=== PATIENT | female | born 2000 | race Caucasian/White ===

== ENCOUNTER 2020-01-01 17:45 | Emergency (ER) | payer MEDICAID, SELFPAY ==
[2020-01-01 19:32] VITALS: BP 118/60; PULSE 62; RESP 14; TEMP 36.8; O2SAT 99; BMI 25.7
--- NOTE | 2020-01-01 20:16 | ED_ITS ---
HPI - Wound/Laceration General Chief Complaint: Wound/Laceration Stated Complaint: NOSE INJUIRY DUE TO FALL Time Seen by Provider: 01/01/20 20:01 Source: patient Mode of arrival: ambulatory Limitations: no limitations History of Present Illness HPI narrative: patient had a trip and fall yesterday hitting her face on her air conditioner. She denies loss of consciousness. She is here with a laceration to the nose. No headache, dizziness, vision changes, nausea or vomiting. Tetanus is up-to-date. Onset (ago): day(s) Location: face Place: home Patient tetanus UTD: Yes Context: accidental Associated symptoms: none Related Data Allergies Allergy/AdvReac Type Severity Reaction Status Date / Time No Known Allergies Allergy Unverified 10/25/19 16:51 [No Known Allergies*] Review of Systems Review of Systems: Yes all other systems are reviewed and are negative Constitutional: Constitutional: Reports no additional constitutional complaints, Denies body ache(s), Denies chills, Denies fever(s), Denies headache(s) and Denies weakness Eyes: Eyes: Reports no additional eye complaints and Denies change in vision ENT: Reports system reviewed and no additional complaints, except as documented, Denies dizziness, Denies headache(s), Denies nasal congestion, Den ies nasal discharge and Denies neck pain Cardiovascular: Cardiovascular: Reports no additional cardiovascular complaints, Denies chest pain, Denies leg edema and Denies dyspnea Respiratory: Respiratory: Reports no additional respiratory complaints, Denies cough and Denies dyspnea Gastrointestinal: Gastrointestinal: Reports no additional gastrointestinal complaints, Denies abdominal pain, Denies diarrhea, Denies nausea and Denies vomiting Genitourinary: Genitourinary: Reports no additional female genitourinary complaints and Denies urinary incontinence Musculoskeletal: Musculoskeletal: Reports no additional musculoskeletal complaints, Denies back pain, Denies arthralgias, Denies joint swelling, Denies neck pain, Denies numbness and Denies tingling Integumentary/Breasts: Skin/Breast: Reports system reviewed and no additional complaints, except as docu and Denies rash Neurologic: Reports system reviewed and no additional complaints, except as documented, Denies Abnormal speech present, Denies dizziness, Denies headache(s), Denies numbness, Denies tingling and Denies weakness PMFSH Past Medical History Attestation statement: The following information was validated with the patient. Source: old records reviewed and nursing notes reviewed Medical History No known health problems Social History Social History Advance Directives: No Advance Directives Information Provided: No Physical Exam Vital Signs: Vital Signs: Last Vital Signs Temp 98.3 F 01/01/20 19:32 Pulse 62 01/01/20 19:32 Resp 14 01/01/20 19:32 BP 118/60 01/01/20 19:32 Pulse Ox 99 01/01/20 19:32 Body Mass Index 25.7 Const: General: cooperative, healthy appearing, comfortable and no acute distress Orientation/consciousness: patient oriented x3 Limitations: no limitations HENMT: Other: To the bridge of the nose there is a approximately 0.5 centimetre laceration with no active bleeding and edges are approximated. There is some mild tenderness over the site with no ecchymosis or swelling. Head: Yes normal to inspection Ears: hearing grossly normal bilaterally General nose exam: Normal external nose present Face and sinus: Yes normal facial exam Mouth: Normal oral and palatal mucosa present Throat: Yes posterior oropharynx normal Eyes: General: appearance normal, both eyes and all related structures Pupils: Equal, round and reactive pupils present Neck: Neck: Yes normal visual inspection Chest: Chest palpation & inspection: normal inspection of the chest Resp: Effort & Inspection: normal respiratory effort Auscultation: clear to auscultation bilaterally Cardio: Rate: regular rate Rhythm: regular rhythm Peripheral pulses: Peripheral pulses 2+ throughout GI: Inspection: Yes normal to inspection Palpation (GI): Soft to palpation and nontender Auscultation: normal bowel sounds Back/Spine/Pelvis: Thoracic/Lumbar Spine: thoracic and lumbar spine normal to inspection Skin: General skin exam: no rashes or lesions noted Neuro: General: patient oriented x3, no focal motor deficits and normal sensation to monofilament Cranial nerves: Yes Equal, round and reactive pupils present Cognition (Neuro): normal cognition Speech: No Abnormal speech present Gait exam (Neuro): Normal gait present Motor exam (neuro): 5/5 motor strength present throughout Extrem: General: Yes normal to inspection Course Course Course Narrative: Steri-Strips placed to the laceration. Normal neuro exam. Patient is well-appearing and tetanus is up-to-date. Reviewed worrisome signs and symptoms of when to return to the emergency department. Comfortable discharge home. Discharge Plan Discharge Clinical Impression: Laceration, Contusion of nose Patient Disposition: Home, Self-Care Instructions: Contusion in Adults (ED), Facial Laceration (ED) Additional Instructions: leave the butterfly stitches on for 5 days. Then remove. If they fall off that is fine Referrals: Angus Adhikari MD [Primary Care Provider] - 2 days
== END 2020-01-01 20:20 | disposition home or self-care (01) ==
PROVIDERS: Emergency Provider Emergency Medicine; PCP Pediatrics
DX: S01.21XA Laceration without foreign body of nose, initial encounter (principal); J34.89 Other specified disorders of nose and nasal sinuses; W01.119A Fall on same level from slipping, tripping and stumbling with subsequent striking against unspecified sharp object, initial encounter; Y93.9 Activity, unspecified; Y92.9 Unspecified place or not applicable; Y99.9 Unspecified external cause status
CPT/HCPCS: 99283

== ENCOUNTER 2020-09-13 14:06 | Emergency (ER) | payer MEDICAID, SELFPAY ==
[2020-09-13 14:24] VITALS: BP 114/50; PULSE 57; RESP 16; TEMP 37; O2SAT 95; BMI 23.9
[2020-09-13 14:45] LABS: Glucose Urine UA NEG (NEG); Leukocyte Esterase Urine 2+ (NEG); Nitrite Urine NEG (NEG); PH 6.5 (5.0-8.0); Specific Gravity - Urine 1.025 (1.005-1.025); UACC Culture Trigger YES; Urine Blood 3+ (NEG); Urine Ketones 5 MG/DL (NEG); Urine Protein 3+ MG/DL (NEG-TRACE)
[2020-09-13 14:48] LABS: Appearance Urine CLOUDY; Color Urine YELLOW
[2020-09-13 14:53] LABS: Bacteria Urine 2+ /LPF; Mucus Urine 2+ /LPF; RBC Urine 50-75 /HPF (0); Squamous Epithelial Cell Urine 3+ /LPF; WBC Urine 30-49 /HPF (0-4)
== END 2020-09-13 16:46 | disposition left against medical advice (07) ==
PROVIDERS: Emergency Provider Emergency Medicine; PCP Pediatrics
DX: R30.9 Painful micturition, unspecified (principal)
CPT/HCPCS: 81001; 87086; 87088; 87186; 99283

== ENCOUNTER 2021-05-22 20:59 | Emergency (ER) | payer MEDICAID, SELFPAY ==
[2021-05-22 21:32] VITALS: BP 112/73; PULSE 98; RESP 14; TEMP 36.6; O2SAT 98; BMI 25.3
[2021-05-22 22:03] LABS: COVID-19 Test Negative (Negative); IDNOW Serial# 16C4AD1C; Influenza A Positive (Negative); Influenza B2 Negative (Negative)
[2021-05-22 22:04] LABS: IDNOW Serial# 08D9AD1C; Strep A Nucleic Acid Negative (Negative)
--- NOTE | 2021-05-23 00:22 | ED.URI ---
HPI - URI/Sore Throat General Chief Complaint: Upper Respiratory Symptoms Stated Complaint: Sore throat Time Seen by Provider: 05/23/21 00:18 Source: patient Mode of arrival: ambulatory Limitations: no limitations History of Present Illness HPI Narrative: Patient comes to the emergency room complaining of sore throat for 2 days. Patient denies fever or chills, no chest pain, no shortness of breath. Patient complaining of couple of episodes of diarrhea, no abdominal pain, no nausea vomiting. Related Data Previous Rx's Medication Instructions Recorded loperamide 2 mg capsule 2 mg PO Q4H PRN #10 cap 05/23/21 oseltamivir 75 mg capsule (Tamiflu) 75 mg PO BID 5 Days #10 cap 05/23/21 Allergies Allergy/AdvReac Type Severity Reaction Status Date / Time No Known Allergies Allergy Unverified 10/25/19 16:51 [No Known Allergies*] Review of Systems Review of Systems: Constitutional : No Weight loss, No Fever, No Chills, No Night Sweats, No Fatigue, No Malaise ENT/Mouth : No Hearing loss, No Ear Pain, No Nasal Congestion, No Sinus Pain, No Hoarseness, complaining of mild sore throat, No Rhinorrhea, No Swallowing Difficulty Eyes: No Eye Pain, No Swelling, No Redness, No Foreign Body, No Discharge, No Vision Changes Cardiovascular : No Chest Pain, No SOB, No Dyspnea on Exertion, No Orthopnea, No Edema, No Palpitations Respiratory : No Cough, No Sputum, No Wheezing, No Smoke Exposure, No Dyspnea Gastrointestinal : No Nausea, No Vomiting, burning of multiple episodes of Diarrhea, No Constipation, No abdominal Pain, No Hematochezia, No Melena Genitourinary : no irregular bleeding, No Dysuria, No Urinary Frequency, No Hematuria, No Urinary Incontinence, No Urgency, No Flank Pain, No Urinary Flow Changes, No Hesitancy Musculoskeletal : No joint pain, No Myalgias, No Joint Swelling Skin : No Skin Lesions, No rash Neuro : No Weakness, No Numbness, No Paresthesias, No Loss of Consciousness, No Dizziness, No Headache Psych : No Anxiety/Panic, No Depression, No SI/HI/AH/VH, No Social Issues, Heme/Lymph: No Bruising, No Bleeding,No Lymphadenopathy Endocrine : No Polyuria, No Polydipsia, No Temperature Intolerance [facility] Past Medical History Medical History No known health problems Social History Social History Advance Directives: No Physical Exam Vital Signs: Vital Signs: Last Vital Signs Temp 97.8 F 05/22/21 21:32 Pulse 98 05/22/21 21:32 Resp 14 05/22/21 21:32 BP 112/73 05/22/21 21:32 Pulse Ox 98 05/22/21 21:32 BMI result Body Mass Index 25.3 Const: Other: Appearance: Alert. Oriented X3. No acute distress. Well-appearing Eyes: Pupils equal, round and reactive to light. ENT: Pharynx normal. Neck: Normal inspection. Neck supple. No lymph nodes noted. No crepitus CVS: Normal heart rate and rhythm. Pulses normal. Normal S1 and S2 Respiratory: No respiratory distress. Breath sounds normal. No Wheezing. No rales Abdomen: Soft and nontender. No rigidity. No distention. Skin: Skin warm and dry. Normal skin color. Normal skin turgor. Extremities: No lower extremity edema. No Lacerations. No Rash Neuro: Oriented X 3. No motor deficit. No sensory deficit. Moving all extremities. No slurred speech. CN 2 through 12 grossly intact Psych: calm, cooperative, normal affect Course Course Course Narrative: I discussed with the patient the lab findings, patient tested positive for influenza. I discussed with the patient and the Tamiflu may or may not be effective, it may have more side effects than actual benefits. Patient decided to go ahead and try Tamiflu. MDM - URI/Sore Throat Lab Data Labs: Lab Results 05/22/21 05/22/21 05/22/21 Range/Units 21:33 21:33 21:33 COVID-19 ([facility]UEL) Negative (Negative) COVID-19 Clin Com See Note Influenza Type A (R[facility]I) Positive A (Negative) Influenza Type B ([facility]I) Negative (Negative) Influenza A & B Note See Note S. pyogenes GrpA [facility]I Negative (Negative) Discharge Plan Discharge Clinical Impression: Influenza A, Diarrhea Patient Disposition: Home, Self-Care Instructions: Influenza (ED) Additional Instructions: Please follow-up with your primary care physician tomorrow. If you have any worsening or new symptoms, please return to the emergency room or call 911 Prescriptions: New oseltamivir [Tamiflu] 75 mg capsule 75 mg PO BID 5 Days Qty: 10 0RF loperamide 2 mg capsule 2 mg PO Q4H PRN (Reason: loose stool) Qty: 10 0RF Rx Instructions: administer after each loose stool until symptoms controlled; do not exceed 8 mg per 24 hrs
== END 2021-05-23 00:54 | disposition home or self-care (01) ==
PROVIDERS: Emergency Provider Emergency Medicine
DX: J10.1 Influenza due to other identified influenza virus with other respiratory manifestations (principal); R19.7 Diarrhea, unspecified; Z20.822 Contact with and (suspected) exposure to COVID-19; Z79.899 Other long term (current) drug therapy
CPT/HCPCS: 87502; 87635; 87651; 99283

== ENCOUNTER 2021-11-18 18:01 | Outpatient (REF) | payer MEDICAID, SELFPAY ==
--- NOTE | ~2021-11-18 | MR_ITS ---
EXAMINATION: MR BRAIN WITHOUT AND WITH CONTRAST MR ANGIOGRAPHY HEAD WITHOUT CONTRAST CLINICAL INFORMATION: AML in remission. Headaches. COMPARISON: None. TECHNIQUE: Multiplanar, multisequence imaging of the brain was obtained without and with intravenous administration of contrast. 3-D [id number] MR angiography is performed. Multiple 3-D reformatted images are processed on the technologist workstation. Intravenous contrast: Gadavist 5.5 mL. FINDINGS: No diffusion abnormalities are identified to suggest an acute infarct. The ventricles are normal in size. No mass effect or midline shift is seen. No brain parenchymal signal abnormality is noted. Nonspecific symmetric, mild linear T2 hyperintense foci of signal change noted in the cerebellar hemispheres. No extra-axial fluid collections are seen. The brainstem is normal. On postcontrast imaging, there is no abnormal parenchymal or leptomeningeal enhancement. No pathologic magnetic susceptibility artifact is identified on the gradient refocused acquisition. The craniovertebral junction, marrow signal, and midline structures are normal. The major intracranial flow voids at the level of the [place] are preserved. The dural venous sinus flow voids are maintained. The mastoid air cells are well aerated. Mild ethmoid sinus mucosal thickening noted. MRA of the [place] demonstrates a normal caliber to the anterior and posterior circulation vasculature. No stenoses or occlusions are seen. No vascular malformation or aneurysms are identified. MR/MR head/brain wo/w con IMPRESSION: Nonspecific symmetric, mild linear foci of T2 hyperintense signal abnormality within the cerebellar hemispheres, possibly reflecting chronic gliosis with fissural prominence from volume loss. No corresponding abnormal enhancement. Otherwise, no acute process. Normal MRA of the head.
--- NOTE | ~2021-11-18 | MR_ITS ---
EXAMINATION: MR BRAIN WITHOUT AND WITH CONTRAST MR ANGIOGRAPHY HEAD WITHOUT CONTRAST CLINICAL INFORMATION: AML in remission. Headaches. COMPARISON: None. TECHNIQUE: Multiplanar, multisequence imaging of the brain was obtained without and with intravenous administration of contrast. 3-D [id number] MR angiography is performed. Multiple 3-D reformatted images are processed on the technologist workstation. Intravenous contrast: Gadavist 5.5 mL. FINDINGS: No diffusion abnormalities are identified to suggest an acute infarct. The ventricles are normal in size. No mass effect or midline shift is seen. No brain parenchymal signal abnormality is noted. Nonspecific symmetric, mild linear T2 hyperintense foci of signal change noted in the cerebellar hemispheres. No extra-axial fluid collections are seen. The brainstem is normal. On postcontrast imaging, there is no abnormal parenchymal or leptomeningeal enhancement. No pathologic magnetic susceptibility artifact is identified on the gradient refocused acquisition. The craniovertebral junction, marrow signal, and midline structures are normal. The major intracranial flow voids at the level of the [place] are preserved. The dural venous sinus flow voids are maintained. The mastoid air cells are well aerated. Mild ethmoid sinus mucosal thickening noted. MRA of the [place] demonstrates a normal caliber to the anterior and posterior circulation vasculature. No stenoses or occlusions are seen. No vascular malformation or aneurysms are identified. MR/MR angio head wo con IMPRESSION: Nonspecific symmetric, mild linear foci of T2 hyperintense signal abnormality within the cerebellar hemispheres, possibly reflecting chronic gliosis with fissural prominence from volume loss. No corresponding abnormal enhancement. Otherwise, no acute process. Normal MRA of the head.
== END 2021-11-18 18:02 | disposition home or self-care (01) ==
LOC: HO.MRI 18:01
PROVIDERS: Visit Provider Registered Nurse
DX: R20.2 Paresthesia of skin (principal); R51.9 Headache, unspecified
CPT/HCPCS: 70544; 70553; A9585

== ENCOUNTER 2022-01-13 22:33 | Emergency (ER) | payer MEDICAID, SELFPAY ==
[2022-01-13 22:43] VITALS: BP 118/71; PULSE 69; RESP 16; TEMP 36.6; O2SAT 95; BMI 23.0
[2022-01-13 23:04] LABS: MANUAL DIFF FLAG NO
[2022-01-13 23:05] LABS: Basophils Percent Auto 0.4 % (0-2); Eosinophils Absolute Auto 0.1 X10*3/uL (0.0-0.4); Eosinophils Percent Auto 1.7 % (0-4); Hematocrit 37.5 % (37.0-47.0); Hemoglobin 12.1 g/dl (12.0-16.0); Imm Gran Abs Auto 0.01 X10*3/uL (0.00-0.03); Imm Gran Pct Auto 0.1 % (0.0-0.4); Lymphocytes Percent Auto 27.9 % (20-40); Mean Corpuscular HGB Conc 32.3 g/dl (31.0-35.0); Mean Corpuscular Hemoglobin 27.1 pg (27.0-33.0); Mean Corpuscular Volume 84.1 fL (80.0-98.0); Mean Platelet Volume 9.6 fL (9.4-12.3); Monocytes Absolute Auto 0.4 X10*3/uL (0.1-1.2); Monocytes Percent Auto 6.2 % (2-11); Neutrophils Absolute Auto 4.5 x10*3/uL (2.0-8.3); Neutrophils Percent Auto 63.7 % (45-73); Platelet Count 295 X10*3/uL (160-400); Red Blood Count 4.46 X10*6/uL (4.20-5.50); Red Cell Distribution Width 12.7 % (11.0-16.0); White Blood Count 7.1 X10*3/uL (4.8-10.8)
[2022-01-13 23:22] LABS: Alanine Aminotransferase 13 U/L (0-31); Albumin Level 4.7 g/dL (3.5-5.0); Alkaline Phosphatase 37 U/L (39-117); Anion Gap 12 (12-20); Aspartate Amino Transferase 17 U/L (5-31); Blood Urea Nitrogen 10 mg/dL (9-16); Calcium 9.4 mg/dL (8.4-10.2); Carbon Dioxide 29 mmol/L (22-29); Chloride 104 mmol/L (96-108); Estimated Glomerular Filt Rate > 60; Glucose Random 102 mg/dL (60-115); Potassium 3.7 mmol/L (3.3-5.1); Sodium 141 mmol/L (135-145); Total Protein 7.7 g/dL (6.5-8.0)
[2022-01-14 01:37] LABS: Bilirubin Total 0.3 mg/dL (0.0-1.0)
== END 2022-01-14 00:55 | disposition left against medical advice (07) ==
PROVIDERS: Emergency Provider Emergency Medicine
DX: R51.9 Headache, unspecified (principal); R20.0 Anesthesia of skin; Z79.899 Other long term (current) drug therapy
CPT/HCPCS: 36415; 80053; 85025; 99281; 99283